=== PATIENT | female | born 1995 | race Two or more races ===

== ENCOUNTER 2019-10-20 11:51 | Emergency (ER) | payer MEDICAID, OTHER ==
[~2019-10-20] VITALS: Ht 157.5 cm; Wt 68.0 kg
[2019-10-20] MEDS ORDERED: ACETAMINOPHEN 325 MG TAB PO ONE (12:15)
[2019-10-20 14:22] LABS: Hematocrit 41.1 % (36.0-46.0); Hemoglobin 13.4 g/dL (12.2-16.2); Mean Corpuscular Hemoglobin 26.3 pg (28.0-32.0); Mean Corpuscular Hgb Conc. 32.6 g/dL (32.0-36.0); Platelet Count (auto) 218 10^3/uL (140-450); White Blood Cell 4.6 10^3/uL (4.4-10.8)
[2019-10-20 14:24] LABS: Mean Corpuscular Volume 80.7 fL (80.0-100.0); Red Cell Distribution Width 14.1 % (11.8-14.3)
[2019-10-20 14:27] LABS: Basophils % (manual) 0 (0.0-2.0); Blast Cells 0; Eosinophils % (manual) 0 (0-7); Metamyelocytes % 0; Myelocytes % 0; Promyelocytes % 0; Reactive Lymphocytes 0
[2019-10-20 14:38] LABS: Calcium 8.9 mg/dL (8.5-10.1); Potassium 4.1 mmol/L (3.5-5.1)
[2019-10-20 14:41] LABS: Band Neutrophils % (manual) 1; Lymphocytes % (manual) 24 (10.0-50.0)
[2019-10-20 14:42] LABS: Monocytes % (manual) 15 (0-12)
[2019-10-20 14:45] LABS: Albumin 4.2 g/dL (3.4-5.0); BUN/Creatinine Ratio 9.1; Bilirubin, Total 0.2 mg/dL (0.2-1.0); Total Protein 8.2 g/dL (6.4-8.2)
[2019-10-20] MEDS ORDERED: AZITHROMYCIN 250 MG TAB PO ONE (16:00)
[2019-10-20 16:34] VITALS: BP 107/71
== END 2019-10-20 16:34 | disposition home or self-care (01) ==
LOC: ER 11:51
DX: U07.1 COVID-19 (principal); J18.1 Lobar pneumonia, unspecified organism; F12.10 Cannabis abuse, uncomplicated
CPT/HCPCS: 36415; 71045; 80053; 84702; 85007; 85027; 87070; 87804; 87880; 93005; 99285; C9803; U0003

== ENCOUNTER → 2021-02-01 | Outpatient (CLI) | payer MEDICAID ==
[2021-02-01 09:39] LABS: Basophils # (auto) 0 10 ^3/uL (0-0.2); Basophils % (auto) 0.4 % (0.0-2.0); Eosinophils # (auto) 0.1 10 ^3/uL (0-0.8); Eosinophils % (auto) 1.2 % (0.0-7.0); Hematocrit 41.6 % (36.0-46.0); Hemoglobin 13.7 g/dL (12.2-16.2); Lymphocytes # (auto) 2.3 10 ^3/uL (0.4-5.4); Lymphocytes % (auto) 32.6 % (10.0-50.0); Mean Corpuscular Volume 81.9 fL (80.0-100.0); Monocytes # (auto) 0.6 10 ^3/uL (0-1.3); Monocytes % (auto) 8.8 % (0.0-12.0); Nucleated Red Blood Cells % 0.1 %; Red Blood Cells 5.08 10^6/uL (4.0-5.20); Red Cell Distribution Width 13.3 % (11.8-14.3); White Blood Cell 7.1 10^3/uL (4.4-10.8)
[2021-02-01 10:16] LABS: Albumin 3.9 g/dL (3.4-5.0); Calcium 8.5 mg/dL (8.5-10.1); Potassium 4.9 mmol/L (3.5-5.1)
[2021-02-01 10:20] LABS: BUN/Creatinine Ratio 11.8; Bilirubin, Total 0.3 mg/dL (0.2-1.0)
== END | disposition home or self-care (01) ==
LOC: LAB 09:16
PROVIDERS: ATTEND Nurse Practitioner Family
DX: R42 Dizziness and giddiness (principal); F42.9 Obsessive-compulsive disorder, unspecified; F90.9 Attention-deficit hyperactivity disorder, unspecified type
CPT/HCPCS: 36415; 80053; 84702; 85025